=== PATIENT | female | born 1945 | race Caucasian/White ===

== ENCOUNTER 2017-07-18 09:01 | Inpatient (IN) | payer MEDICARE, OTHER ==
--- NOTE | ~2017-07-18 | OP ---
PATIENT NAME: TOMMIE SALOMON MEDICAL RECORD: [id number] :47 LOCATION:[id number] ADMISSION DATE:07/18/17 SURGEON: HANS ROSARIO DO DATE OF OPERATION: 07/18/2017 DATE OF SURGERY: 07/18/2017 PROCEDURE PERFORMED: Left bicondylar tibial plateau open reduction internal fixation. PREOPERATIVE DIAGNOSIS: Left bicondylar tibial plateau fracture, displaced. POSTOPERATIVE DIAGNOSIS: Left bicondylar tibial plateau fracture, displaced. INDICATIONS: Ms. Salomon is a 72-year-old female who twisted her leg today and sustained a left tibial plateau fracture, was seen in the ER. X-rays were taken. She said she had quite a bit of pain and it started to hurt to move her toes with passive stretch, so worried about compartment syndrome. We decided to put her on the schedule for today. A CT scan was done, which showed a bicondylar tibial plateau fracture that was impacted and very comminuted. The patient was aware of this and she was informed of the risks and benefits of the procedure including infection, bleeding, need for further surgery. She was informed that due to her age being 72, this may not heal real well and due to her bone quality and that she may be looking at a total knee arthroplasty in the future, but we try to stabilize this fracture in the meantime. She was aware of all these risks including damage to nerves and vessels and bleeding. She consented to the procedure. SURGEON: Hans Rosario DO BLOOD LOSS: Approximately 100 mL. TOURNIQUET TIME: 62 minutes. DESCRIPTION OF PROCEDURE: The patient was taken to the operative suite, laid in the supine position, given general anesthetic and LMA was placed. The tourniquet was placed above the knee. Left lower extremity was prepped and draped in sterile fashion. Everyone was in agreement with the correct side, site and patient. Once this was done, we exsanguinated the left lower extremity with an Moise wrap and the tourniquet was inflated. Incision was then drawn out on the lateral side of the knee and carried down on the lateral side of the tibia over the anterior compartment. Careful dissection was made down to the fascia over the anterior tibia. This was incised as was the IT band and the tibia was exposed, pulled with pulling traction and clamping the tibial plateau together, had a nice reduction. The plate was then put on and once this was in good position, K-wires were put into place as seen on AP and lateral as well to be in good position. Once this was done, we began putting screws in the most proximal holes. Proximal 2 holes and the Biomet 9-hole tibial locking plate were put in with compression screws and then one in the shaft as well compression screw. Once this was done, the rest of the proximal screw holes 3 in the most proximal row and 3 in the more distal row of the plateau were put in and then one in the most posterior hole of the most proximal row, a variable angle locking screw was put in to catch the posterior aspect of the plateau that was fractured as well. These were eventually all changed out to be locking screws including multidirectional screw which was not replaced, so there were 7 OPERATIVE REPORT [id number] TOMMIE SALOMON total locking screws in the proximal portion. Once the proximal screws were put into place to the plateau and had an adequate reduction, 2 Kickstand screws were put in, locking screws and then more screws down the shaft. They were all locking screws. At that point, we took final x-rays and had good position of the plate. There was some comminution in the plateau itself, but had a good reduction, thought to be very stable. She did have a lateral collateral ligament injury which was loose laterally. The tourniquet was then let down. Any bleeders were coagulated and the fascia was closed very loosely with 0 Vicryl. The IT band was closed with 0 Vicryl as well and then a stitch was put in the LCL to close it down, tighten it up as well [id number] stitch. Then, the wound was irrigated thoroughly and the skin was closed with 2-0 Vicryl in inverted interrupted fashion and then a ZipLine was placed on the skin. There was a poke hole made on the medial side for the clamp which was closed with a 4-0 Monocryl in inverted interrupted fashion. The ZipLine was placed laterally over the incision and then a very proximal part of the incision. A single horizontal mattress of 4-0 Monocryl was placed. Then, Adaptic, 4 x 4s, and ABD were placed over the incisions and then patient was wrapped with cast padding, Kerlix, cast padding and then a layer of Kerlix and 6-inch Aces were placed from the toes up and then the patient was placed in a knee immobilizer, awakened and taken to recovery in stable condition. TRANSINT:[id number] Voice Confirmation ID: [id number] DOCUMENT ID: [id number] HANS ROSARIO DO at 0744 CC: [id number] DICTATION DATE: 07/18/172009 DRUG SAFETY PHYSICIAN: 07/19/17 0727 ADM IN [place] [id number] [place] [id number]
[2017-07-18 11:31] LABS: HEMOGLOBIN 12.9 g/dL (12-16); LYMPHOCYTES 6.6 % (15-50); MCH 27.7 pg (26.0-34.0); MCHC 33.1 g/dL (31.0-37.0); MCV 83.7 fL (80.0-100.0); MEAN PLATELET VOLUME 9.8 fL (7.4-10.4); NEUTROPHILS 88.1 % (40-80); PLATELET COUNT 253 10x3/uL (130-400); RBC 4.66 10x6/uL (4.00-5.40); RDW 13.4 % (11.5-14.5); WBC 12.9 10x3/uL (4.8-10.8)
[2017-07-18 11:41] LABS: APTT 27.4 SECONDS (22.8-39.4); INR 0.99 (0.85-1.17); PROTIME 12.7 SECONDS (11.6-15.0)
[2017-07-18 11:47] LABS: ALBUMIN 3.6 g/dL (3.4-5.0); ALKALINE PHOSPHATASE 85 U/L (46-116); ALT (SGPT) 28 U/L (10-68); BILIRUBIN - TOTAL 0.34 mg/dL (0.2-1.3); CALC OSMOLALITY 280 mosm/kg (275-300); CALCIUM 8.8 mg/dL (8.5-10.1); CHLORIDE - SERUM 105 mmol/L (98-107); CREATININE - SERUM 0.7 mg/dL (0.6-1.3); GLUCOSE 113 mg/dL (74-106); POTASSIUM - SERUM 3.5 mmol/L (3.5-5.1); PROTEIN - SERUM 6.7 g/dL (6.4-8.2); SODIUM 141 mmol/L (136-145); UREA NITROGEN 9 mg/dL (7-18); eGFR NON AFRICAN AMERICAN 87 mL/min (90-120)
[2017-07-18 20:45] VITALS: BP 112/54
[2017-07-18 21:41] VITALS: BP 123/50
[2017-07-19] VITALS (7 sets, daily range): BP systolic 90–109; BP diastolic 40–65
[2017-07-19] MEDS ORDERED: ZYRTEC10 MG PO (06:18)
[2017-07-19] MEDS ORDERED: ZANTAC 7575 MG PO (06:18)
[2017-07-19] MEDS ORDERED: VITAMIN D5000 UNIT PO (06:20)
[2017-07-19] MEDS ORDERED: OS-CAL500 MG PO (06:21)
[2017-07-19 06:40] LABS: HEMATOCRIT 34.8 % (36.0-48.0); HEMOGLOBIN 10.9 g/dL (12-16)
[2017-07-20 04:59] VITALS: BP 112/52
[2017-07-20 06:19] LABS: HEMATOCRIT 29.4 % (36.0-48.0); HEMOGLOBIN 9.3 g/dL (12-16)
[2017-07-20 07:50] VITALS: BP 115/44
[2017-07-20 13:00] VITALS: BP 97/50
[2017-07-20 19:38] VITALS: BP 105/54
[2017-07-20 19:40] VITALS: BP 105/54
[2017-07-21 06:23] LABS: HEMATOCRIT 30.7 % (36.0-48.0); HEMOGLOBIN 9.8 g/dL (12-16)
[2017-07-21 06:50] VITALS: BP 121/53
[2017-07-21] MEDS ORDERED: ATARAX 25 MG TA25 MG PO (08:05)
[2017-07-21] MEDS ORDERED: HYDROCODONE-APA1 TAB PO (08:07)
[2017-07-21] MEDS ORDERED: ELIQUIS2.5 MG PO (08:11)
[2017-07-21 08:49] VITALS: BP 101/52
[2017-07-21] MEDS ORDERED: OXYCODONE HCL5 MG PO (09:54)
[2017-07-21 11:58] VITALS: BP 123/67; BP 133/85
[2017-07-21 16:09] VITALS: BP 127/66
== END 2017-07-21 19:41 | DRG 493 ==
LOC: EDBD 09:01 → D.ER 09:01 → D.EDHOLD 14:33 → D.WS 14:33 → D.MS 07-21 07:34
PROVIDERS: Orthopaedic Surgery; Physician Assistant
PROC: 0QSH04Z Reposition Left Tibia with Internal Fixation Device, Open Approach (ICD-10-PCS; principal; 2017-07-18 18:15)
DX: S82.142A Displaced bicondylar fracture of left tibia, initial encounter for closed fracture (principal); D62 Acute posthemorrhagic anemia; R42 Dizziness and giddiness; W18.40XA Slipping, tripping and stumbling without falling, unspecified, initial encounter

== ENCOUNTER 2019-10-24 11:43 | Outpatient (CLI) | payer MEDICARE, OTHER ==
[~2019-10-24] VITALS: Ht 157.5 cm; Wt 56.8 kg
[~2019-10-24 11:43] MED LIST: ATARAX 25 MG TA25 MG PO; ELIQUIS2.5 MG PO; HYDROCODONE-APA1 TAB PO; OS-CAL500 MG PO; OXYCODONE HCL5 MG PO; VITAMIN D5000 UNIT PO; ZANTAC 7575 MG PO; ZYRTEC10 MG PO
[2019-10-24 12:28] VITALS: BP 116/61; Ht 157.5 cm; Wt 56.8 kg
--- NOTE | 2019-10-24 12:59 | NUR ---
PT IN NO DISTRESS AT THIS TIME, NO SIGNS OF ALLERGIC REACTION NOTED. PT LEAVING OPS AT THIS TIME, NAD NOTED.
== END 2019-10-24 13:02 | disposition home or self-care (01) ==
LOC: D.OPS 11:43
PROVIDERS: ATTEND Family Medicine
DX: M81.0 Age-related osteoporosis without current pathological fracture (principal)

== ENCOUNTER → 2020-10-29 12:04 | Outpatient (CLI) | payer MEDICARE, OTHER ==
[~2020-10-29] VITALS: Ht 157.5 cm; Wt 56.8 kg
[2020-10-29 13:06] VITALS: BP 118/61; Ht 157.5 cm; Wt 56.8 kg
== END | disposition home or self-care (01) ==
LOC: D.OPS 12:00
PROVIDERS: ATTEND Family Medicine
DX: M81.0 Age-related osteoporosis without current pathological fracture (principal)